=== PATIENT | male | born 1980 | race Caucasian/White ===

== ENCOUNTER 2017-11-11 17:17 | Emergency (ER) | payer OTHER, SELFPAY ==
[2017-11-11 17:59] LABS: #Basophils 0.1 thou/uL (0.0-0.2); #Eosinphils 0.1 thou/uL (0.0-0.7); #Lymphocytes 3.6 thou/uL (1.20-3.40); #Monocytes 0.7 thou/uL (0.11-0.59); #Neutrophils 6.8 thou/uL (1.40-6.50); %Basophils 0.7 % (0.0-1.0); %Eosinophils 0.9 % (0.0-10.0); %Lymphocytes 31.8 % (21.0-51.0); %Monocytes 6.1 % (0.0-10.0); Hematocrit 54.1 % (42.0-52.0); Mean Platelet Volume 7.5 fL (7.4-10.4); Red Blood Cell (RBC) Count 5.93 mill/uL (4.70-6.10); White Blood Cell (WBC) Count 11.2 thou/uL (4.8-10.8)
[2017-11-11 18:30] LABS: Troponin I Less than 0.010 ng/mL (< 0.028)
[2017-11-11 19:34] LABS: Lactic Acid - Sepsis 1.5 mmol/L (0.5-2.2)
--- NOTE | 2017-11-11 19:36 | RAD ---
AP VIEW CHEST 11/11/17 HISTORY: Cough, headache, drowsiness. AP view chest is obtained on 11/11/17. The lungs are well aerated. No evidence of active intrathoracic disease is seen. No evidence of effus ions, pneumonia or pneumothorax seen. IMPRESSION: Unremarkable AP view chest. POS: [facility]
[2017-11-11 19:39] LABS: ALT (SGPT) 23 U/L (8-55); AST (SGOT) 14 U/L (5-34); Alkaline Phosphatase 58 U/L (40-150); Anion Gap 12 mmol/L (10-20); BUN (Urea Nitrogen) 13 mg/dL (8.9-20.6); Bilirubin, Total 0.5 mg/dL (0.2-1.2); CK (CPK) 93 U/L (30-200); Calc. Creatinine Clearance 0 mL/min (70-130); Calcium 9.3 mg/dL (7.8-10.44); Carbon Dioxide 23 mmol/L (22-29); Chloride 108 mmol/L (98-107); Estimated GFR-MDRD Greater than 90; Globulin 2.8 g/dL (2.4-3.5); Protein, Total 6.9 g/dL (6.0-8.3)
[2017-11-11] MEDS ORDERED: Metoclopramide HCl 10 MG/2 ML VIAL ONE (20:10)
[2017-11-11] MEDS ORDERED: Ketorolac Tromethamine 30 MG/ML VIAL ONE (20:10)
[2017-11-11] MEDS ORDERED: diphenhydrAMINE 50 MG/ML VIAL ONE (20:10)
== END 2017-11-11 21:27 | disposition home or self-care (01) ==
LOC: ERS 17:17
DX: Z77.098 Contact with and (suspected) exposure to other hazardous, chiefly nonmedicinal, chemicals (principal); G43.909 Migraine, unspecified, not intractable, without status migrainosus; F17.210 Nicotine dependence, cigarettes, uncomplicated
CPT/HCPCS: 36415; 71010; 80053; 82553; 83605; 84484; 85025; 86140; 93005; 94760; 96361; 96365; 96375; J1200; J1885; J2765

== ENCOUNTER 2019-06-07 17:52 | Observation (INO) | payer OTHER, SELFPAY ==
[~2019-06-07 17:52] MED LIST: Dexamethasone 20 MG/5 ML VIAL ONE; Lidocaine 1% PF 5 ML VIAL ONE; Ondansetron PF 4 MG/2 ML Vial ONE; PROPOFOL 200 MG/20 ML VIAL ONE
[2019-06-07] MEDS ORDERED: Bupivacaine 0.5% 10 ML VIAL ONE (18:03)
[2019-06-07] MEDS ORDERED: Lidocaine 1% PF 5 ML VIAL ONE (18:03)
--- NOTE | 2019-06-07 18:29 | RAD ---
LEFT FINGER THREE VIEWS: 06/07/19 HISTORY: Injury, laceration to the left thumb, left thumb pain. FINDINGS/IMPRESSION: There is a fracture involving the distal aspect of the distal phalanx with minimal displacement. Tiny radiopaque densities in the soft tissues are consistent with foreign bodies. A soft tissue lacerati on is also seen. POS: [facility]
[2019-06-07] MEDS ORDERED: Thrombin 5000 UNITS/5 ML VIAL ONE (22:26)
[2019-06-07] MEDS ORDERED: Bupivacaine PF 0.5% 30 ML VIAL ONE (22:26)
[2019-06-07] MEDS ORDERED: Sodium Chloride 0.9% 30 ML ONE (22:26)
[2019-06-07] MEDS ORDERED: Fentanyl 100 MCG/2 ML VIAL ONE (22:43)
--- NOTE | 2019-06-08 00:04 | RAD ---
LEFT THUMB TWO VIEWS: HISTORY: Fracture of the left thumb. FINDINGS: Two spot fluoroscopic intraoperative images of the left thumb demonstrate interval reduction and pinn ing of the distal phalangeal fracture of the left thumb since the earlier exam at 6:09 p.m. POS: [facility]
[2019-06-08] MEDS ORDERED: Fentanyl 100 MCG/2 ML VIAL ONE (00:54)
[2019-06-08] MEDS ORDERED: Morphine 4 MG/ML VIAL SLOW IVP PRN (01:00)
[2019-06-08] MEDS ORDERED: traMADol HCl 50 MG TAB PO PRN (01:00)
[2019-06-08] MEDS ORDERED: TETANUS AND DIPHTHERIA TOX/PF 0.5 ML DISP.SYRIN IM SCH (01:00)
[2019-06-08] MEDS ORDERED: Communication Order-Pharmacy FS PRN (01:00)
[2019-06-08] MEDS ORDERED: Acetaminophen 325 MG TAB PO PRN (01:00)
[2019-06-08] MEDS ORDERED: Meperidine HCl/PF 25 MG/ML VIAL IM PRN (01:08)
[2019-06-08] MEDS ORDERED: Ketorolac Tromethamine 30 MG/ML VIAL ONE (01:09)
[2019-06-08 01:47] VITALS: BMI 41.5
[2019-06-08] MEDS ORDERED: Sodium Chloride 0.9% 1,000 ML IV SCH (02:00)
[2019-06-08] MEDS: Ketorolac Tromethamine 30 MG/ML VIAL IVP SCH ×2 (05:35→12:14)
[2019-06-08 06:02] LABS: #Basophils 0.1 thou/uL (0.0-0.2); #Lymphocytes 1.2 thou/uL (1.20-3.40); #Monocytes 0.4 thou/uL (0.11-0.59); #Neutrophils 8.3 thou/uL (1.40-6.50); %Basophils 0.7 % (0.0-1.0); %Eosinophils 0.1 % (0.0-10.0); %Lymphocytes 12.1 % (21.0-51.0); %Monocytes 3.7 % (0.0-10.0); %Neutrophils 83.3 % (42.0-75.0); Hemoglobin 14.9 g/dL (14.0-18.0); Mean Corpuscular HGB CONC 33.2 g/dL (32.0-36.0); Mean Corpuscular Volume 90.4 fL (78.0-98.0); Mean Platelet Volume 7.7 fL (7.4-10.4); Platelet Count 284 thou/uL (130-400); RBC Distribution Width 12.1 % (11.5-14.5); Red Blood Cell (RBC) Count 4.96 mill/uL (4.70-6.10)
[2019-06-08] MEDS: HYDROcodone/Acetaminophen 5/325 mg Tablet PO PRN ×3 (06:02→14:10)
[2019-06-08] MEDS ORDERED: Vancomycin HCl 1 GM in Premix Bag 1 BAG IVPB SCH (09:00)
[2019-06-08] MEDS ORDERED: Aspirin 81 mg Enteric Coated Tablet PO SCH (09:00)
--- NOTE | 2019-06-08 11:55 | OP ---
DATE OF PROCEDURE: 06/08/2019 PREOPERATIVE DIAGNOSES: 1. Left thumb open grade 2 distal phalanx fracture. 2. Left thumb nailbed laceration. 3. Laceration, oblique radial aspect, thumb, distal phalanx, distal 1/3, proximal 1/3 junction. FINDINGS: The three diagnosis above are the discharge diagnoses, but there was a finding of a 3 x 3 mm nailbed defect that could not be closed, so we had to do a nailbed graft and the open grade 2 distal phalanx fracture had moderate contamination in the subcutaneous skin and mild contamination in the bone with lopez particulate matter to include that complete staining of the laceration of the soft tissue with this particulate matter. This necessitated recessed the resection. Also patient had an incomplete bony defect. TOURNIQUET TIME: 15 minutes. ESTIMATED BLOOD LOSS: 10 mL. PROCEDURES: 1. Debridement of material associated with open fracture, which is a separate debridement because of the gross contamination. 2. Debridement of wound. 3. Closure of wound, 3.5 cm. 4. Open reduction and internal fixation of distal phalanx, slightly comminuted. 5. C-arm supervision. 6. Nailbed repair over 1 cm area and then a nailbed graft 3 x 3 mm with a defect that had no nailbed. DESCRIPTION OF PROCEDURE: After successful general endotracheal anesthesia, the limb was prepped and draped. We gave the time-out appropriately, and the site, side, and consent matched. We then injected him with 10 mL of 0.5% Marcaine metacarpophalangeal joint level block, removed his nail, and then we saw the gross contamination in the subcutaneous soft tissue that was moderate and then mild contamination of the nailbed and fracture. We then did through the nailbed defect fracture debridement on both sides using curette, [place] blade, and then the 5 L of Pulsavac irrigation. We resected in part of debridement the soft tissue of the skin back another 1 to 1.5 mm, eliminating all the gross contamination seen here. Next, we established skin lines which did help reduction of fracture, which was markedly and highly comminuted. Once the patient had achieved appropriate debridement, irrigation was accomplished. Then, we reinspected the incision, which we closed with interrupted 4-0 nylon because the wound appeared so clean after debridement, followed by irrigation, followed by debridement, and one more irrigation. We then sutured the 2 cm laceration, and and simple was now complex because there was a 3 x 3 mm loss of nail substance. This was over the fracture site. For this reason, we then performed a partial-thickness nailbed graft and secured it with a 6-0 chromic, and then had bacitracin and Adaptic applied over all wounds, and for the area in question a bolster was applied over the bacitracin Adaptic with cotton ball and mineral oil. Job ID: [id number]
[2019-06-08 12:32] VITALS: TEMP 97.9
[2019-06-08 16:00] VITALS: BP 107/55
== END 2019-06-08 16:47 | disposition home or self-care (01) ==
LOC: ERS 17:52 → 2SW 19:22 → SDC/OP 19:26 → 2SW 06-08 01:00
PROVIDERS: ADMIT Orthopaedic Surgery Hand Surgery; ATTEND Orthopaedic Surgery Hand Surgery
PROC: 0XQMXZZ Repair Left Thumb, External Approach (ICD-10-PCS; principal; 2019-06-08)
PROC: 0PSS04Z Reposition Left Thumb Phalanx with Internal Fixation Device, Open Approach (ICD-10-PCS; 2019-06-08)
PROC: 0HQQXZZ Repair Finger Nail, External Approach (ICD-10-PCS; 2019-06-08)
DX: S62.522A Displaced fracture of distal phalanx of left thumb, initial encounter for closed fracture (principal); F17.210 Nicotine dependence, cigarettes, uncomplicated; F17.220 Nicotine dependence, chewing tobacco, uncomplicated; Z91.040 Latex allergy status
CPT/HCPCS: 36415; 76000; 85025; 96365; 96375; 96376; G0378; J0690; J1100; J1885; J2001; J2405; J2704; J3010; J3370; J3490; J7050; S0020

== ENCOUNTER 2019-07-30 16:06 | Emergency (ER) | payer OTHER, SELFPAY ==
--- NOTE | 2019-07-30 17:37 | RAD ---
EXAM: LEFT HAND THREE VIEWS: 07/30/19 HISTORY: Pain and redness to left thumb following surgery on 06/07/19. COMPARISON: 06/07/19. Two Steinmann pins stabilize the distal thumb, distal phalanx with some soft tissue swelling. There i s some minimal bone demineralization. Persistent fracture line is seen on the radial side but appeara nce does not appear to be significantly changed from the 06/17/19 study. IMPRESSION: Minimal soft tissue swelling. Steinmann pin fixation of the distal phalanx of the thumb. Persistent c ortical irregularity from the previous fracture. No evidence for new fracture. If there is strong clinical concern for osteomyelitis, nonemergent MRI study might be considered alth ough the Steinmann pins may well cause some metal susceptibility artifact which would lower the sensi tivity of this study. Another consideration would be that of a nuclear medicine white blood cell sca n. POS: [facility]
== END 2019-07-30 18:10 | disposition home or self-care (01) ==
LOC: ERS 16:06
DX: L03.012 Cellulitis of left finger (principal); F31.9 Bipolar disorder, unspecified; F17.220 Nicotine dependence, chewing tobacco, uncomplicated; Z79.899 Other long term (current) drug therapy

== ENCOUNTER 2019-08-02 12:00 | Day surgery (SDC) | payer OTHER ==
[2019-08-02] MEDS ORDERED: Bupivacaine PF 0.5% 30 ML VIAL ONE (14:04)
[2019-08-02] MEDS ORDERED: Bacitracin Zinc Ointment 30 gm TUBE ONE (14:04)
[2019-08-02] MEDS ORDERED: Sodium Chloride 0.9% 10 ML ONE (14:04)
[2019-08-02] MEDS ORDERED: Sodium Chloride 0.9% 20 ML ONE (14:14)
[2019-08-02] MEDS ORDERED: Fentanyl 100 MCG/2 ML VIAL ONE ×4 (14:16→18:21)
[2019-08-02] MEDS ORDERED: Midazolam HCl 2 mg/2 ml Vial ONE (14:33)
[2019-08-02] MEDS ORDERED: Ketorolac Tromethamine 30 MG/ML VIAL ONE (18:18)
--- NOTE | 2019-08-03 01:30 | OP ---
DATE OF PROCEDURE: 08/02/2019 PREOPERATIVE DIAGNOSIS: Left thumb abscess. POSTOPERATIVE DIAGNOSES: 1. Left thumb subcutaneous fat with some mucopurulence, partially resolved cellulitis orally. 2. No evidence of soft bone, but bone biopsy taken. PROCEDURES PERFORMED: Left thumb abscess incision and drainage. Open bone biopsy of thumb, distal phalanx. CULTURES SENT: Yes, wound culture, bone biopsy culture. IRRIGATION: Total of 3 L Pulsavac pressure augmented by 250 mL through bulb syringe across the phalanx pulp space. DESCRIPTION OF PROCEDURE: After successful general LMA technique, the limb was prepped and draped. We then did a time-out and gave the patient 6 mL of 0.5% Marcaine as the patient already had 10 mL in the clinic prior to this. We had removed his K-wires in the clinic and there was no purulence here, so we were afraid the purulence was in the pulp space. He then underwent tourniquet inflation after the limb exsanguination to 250 mmHg pressure. The area where he had pain, tenderness and fluctuance preop, which was 1.5 to 2 cm area just proximal to his transverse 1 cm laceration when the radial nail was opened and immediately there was some mucopurulent fat and small amount of gross white purulence. We debrided the fat and we irrigated all way across with 200 mL normal saline using a syringe and then we used a Pulsavac for remaining irrigation, deflated the tourniquet. Then, just before deflating the tourniquet, we used a Crile and obtained a bone biopsy small sliver and cultured this separate from the wound culture. We placed one suture in the distal wound edge with the transverse wound and at the longitudinal wound to help stabilize it and then packed the wound with Adaptic all way across the pulp space. We then placed a bulky dressing with the plan for the patient return to clinic in 24 hours for wound dressing change and he will be placed on different antibiotics and given pain medicine. Job ID: [id number]
== END 2019-08-02 20:00 | disposition home or self-care (01) ==
LOC: SDC 12:00
PROVIDERS: ATTEND Orthopaedic Surgery Hand Surgery
PROC: 0H9GXZZ Drainage of Left Hand Skin, External Approach (ICD-10-PCS; principal; 2019-08-02)
PROC: 0PBV0ZX Excision of Left Finger Phalanx, Open Approach, Diagnostic (ICD-10-PCS; principal; 2019-08-02)
DX: L02.512 Cutaneous abscess of left hand (principal); F17.200 Nicotine dependence, unspecified, uncomplicated; Z91.040 Latex allergy status
CPT/HCPCS: 87070; 87205; J1885; J2250; J3010; J3370; J3490; S0020

== ENCOUNTER 2021-04-12 08:21 | Outpatient (CLI) | payer OTHER ==
[2021-04-12 09:50] LABS: #Basophils 0.1 10x3/uL (0.0-0.2); #Eosinphils 0.2 10x3/uL (0.0-0.5); #Monocytes 0.7 10x3/uL (0.0-1.1); #Neutrophils 3.9 10x3/uL (1.5-8.4); %Eosinophils 2.1 % (0.0-6.0); %Lymphocytes 39.5 % (18.0-47.0); Hemoglobin 16.7 g/dL (13.5-17.5); Mean Corpuscular HGB CONC 33.9 g/dL (32.0-36.0); Mean Corpuscular Hemoglobin 30.3 pg (27.0-33.0); Mean Corpuscular Volume 89.5 fl (81.2-95.1); Mean Platelet Volume 10.6 fl (7.4-10.4); Platelet Count 287 10x3/uL (150-450); RBC Distribution Width 12.7 % (11.5-14.5); Red Blood Cell (RBC) Count 5.51 10x6/uL (4.32-5.72)
[2021-04-12 11:08] LABS: Bilirubin Neg (Negative); Blood, Urine Negative (Negative); Clarity Clear (Clear); Glucose, Urine (Dipstick) Normal (Negative); Ketone, Urine Negative (Negative); Leukocyte Negative (Negative); Nitrite Negative (Negative); Protein, Urine (Dipstick) 15 mg/dl (Neg-Trace); Urobilinogen Normal mg/dL (Less than 2)
[2021-04-12 11:38] LABS: RBC/HPF 0-3 HPF (0-3); WBC/HPF 0-3 HPF (0-3)
[2021-04-12 11:39] LABS: Bacteria/HPF None Seen HPF (None Seen); Squamous Epithelial None Seen HPF (0-3)
[2021-04-12 18:10] LABS: SARS-CoV-2 PCR by NAA Not Detected (NotDetected)
== END 2021-04-12 08:22 | disposition home or self-care (01) ==
LOC: LABBT 08:21
PROVIDERS: ATTEND Orthopaedic Surgery Hand Surgery
DX: Z01.812 Encounter for preprocedural laboratory examination (principal); G58.8 Other specified mononeuropathies; Z20.822 Contact with and (suspected) exposure to COVID-19
CPT/HCPCS: 81001; 85025; 87635; U0003; U0005

== ENCOUNTER 2021-04-16 05:48 | Day surgery (SDC) | payer OTHER ==
[2021-04-12 12:25] VITALS: BMI 35.9
[2021-04-16] MEDS ORDERED: Bacitracin Zinc Ointment 30 gm TUBE ONE (06:22)
[2021-04-16] MEDS ORDERED: Bupivacaine PF 0.5% 30 ML VIAL ONE (06:22)
[2021-04-16] MEDS ORDERED: Fentanyl 250 MCG/5 ML VIAL ONE (06:44)
[2021-04-16] MEDS ORDERED: Midazolam HCl 2 mg/2 ml Vial ONE ×2 (06:44→14:30)
[2021-04-16] MEDS ORDERED: Morphine 4 MG/ML VIAL ONE ×2 (07:05→12:11)
[2021-04-16] MEDS ORDERED: SUGAMMADEX SODIUM 200 MG/2 ML VIAL ONE (07:05)
[2021-04-16] MEDS ORDERED: PROPOFOL 200 MG/20 ML VIAL ONE (07:21)
[2021-04-16] MEDS ORDERED: Dexamethasone 20 MG/5 ML VIAL ONE (07:21)
[2021-04-16] MEDS ORDERED: Lidocaine 1% PF 5 ML VIAL ONE (07:21)
[2021-04-16] MEDS ORDERED: Ondansetron PF 4 MG/2 ML Vial ONE (07:21)
[2021-04-16] MEDS ORDERED: Rocuronium Bromide 10 MG/ML (10ML VIAL) ONE (07:21)
[2021-04-16] MEDS ORDERED: Sodium Chloride 0.9% 10 ML ONE (07:47)
[2021-04-16] MEDS ORDERED: Thrombin 5000 UNITS/5 ML VIAL ONE (07:47)
[2021-04-16] MEDS ORDERED: Fentanyl 100 MCG/2 ML VIAL ONE (11:42)
[2021-04-16] MEDS ORDERED: Ketorolac Tromethamine 30 MG/ML VIAL ONE (12:43)
[2021-04-16] MEDS ORDERED: Morphine 2 MG/ML VIAL ONE (13:30)
[2021-04-16] MEDS ORDERED: HYDROcodone/Acetaminophen 5/325 mg Tablet ONE (13:32)
[2021-04-16] MEDS ORDERED: Pregabalin 75 MG CAP PO SCH (14:45)
== END 2021-04-16 15:45 | disposition home or self-care (01) ==
LOC: SDC 05:48
PROVIDERS: ATTEND Orthopaedic Surgery Hand Surgery
PROC: 01Q60ZZ Repair Radial Nerve, Open Approach (ICD-10-PCS; principal; 2021-04-16)
DX: D36.12 Benign neoplasm of peripheral nerves and autonomic nervous system, upper limb, including shoulder (principal); S64.31XA Injury of digital nerve of right thumb, initial encounter; F17.210 Nicotine dependence, cigarettes, uncomplicated; Z79.899 Other long term (current) drug therapy; Z91.040 Latex allergy status
CPT/HCPCS: 88304; C9352; J0690; J1100; J1885; J2250; J2270; J2405; J2704; J3010; J3490; S0020